=== PATIENT | female | born 1990 | race Caucasian/White ===

== ENCOUNTER 2020-02-17 12:14 | Inpatient (IN) ==
--- NOTE | 2020-02-17 12:46 | Emergency Department Note ---
Impression & Plan Mood disorder, Suicidal ideations ED Provider Note NAME: JUAN MANUEL SERNA AGE: 29 SEX: F : 1990 ARRIVES VIA: Walk-In INFORMANT: Patient ED PROVIDER(S): Marko Morrison DO CHIEF COMPLAINT: Suicidal ideations HPI: Patient is a transgender 29-year-old male who is transitioning from female who presents the ER for suicidal ideations. He notes that he has had these thoughts for several months but recently they have gotten worse after he broke up with his boyfriend. He has had multiple plans over the past 24 hours which include crashing his car and cutting his wrist. He denies any auditory hallucinations. No visual hallucinations. Denies any headache, change in vision, chest pain shortness of breath nausea vomiting or diarrhea. He has history of depression and anxiety. He notes his anxiety recently has been a little worse. No other exacerbating or remitting factors. ROS: See above HPI for pertinent positives & negatives. A total of 10 systems reviewed and were otherwise negative. PAST MEDICAL HISTORY:See Below PAST SURGICAL HISTORY:See Below FAMILY HISTORY:See Below SOCIAL HISTORY:See Below HOME MEDICATIONS:See Below ALLERGIES:See Below VITALS:See Below PHYSICAL EXAMINATION: GENERAL: Sitting up in bed, alert, well appearing, well nourished, no distress, non-toxic EYE EXAM: normal conjunctiva OROPHARYNX: no exudate, no erythema, lips, buccal mucosa, and tongue normal and mucous membranes are moist NECK: supple, no nuchal rigidity, no adenopathy, non-tender LUNGS: Clear to auscultation. Normal chest wall mechanics HEART: no murmurs, S1 normal and S2 normal ABDOMEN: abdomen soft, non-tender, normo-active bowel sounds, no masses, no rebound or guarding. BACK: Back is symmetrical on inspection and there is no deformity, no midline tenderness, no CVA tenderness. SKIN: no rashes and no bruising UPPER EXTREMITIES: upper extremities are grossly normal. LOWER EXTREMITIES: No pitting edema. NEURO EXAM: Normal sensorium, cranial nerves II-XII grossly intact, normal speech, no gross weakness of arms, no gross weakness of legs. PSYCH: Mitts to suicidal ideations with a plan MEDICAL DECISION MAKING: Patient is a 29-year-old female transitioning who presents the ER for suicidal ideations with multiple plans. Blood work is obtained and shows no significant leukocytosis or anemia. BMP with mild hyponatremia. LFTs bilirubin TSH was unremarkable. UA was negative. was negative. Salicylates and acetaminophen were negative. Alcohol was negative. Patient was willing to come in on 201 and was evaluated by 3 S. and admitted for further work-up. Triage Nursing notes reviewed. Prior medical records reviewed Vital Signs: reviewed and remarkable for tachycardic Differential diagnosis: Mood disorder, infection, hypoglycemia, electrolyte abnormalities, cardiac sources, intracerebral event, toxicologic, trauma, neurologic, as well as other pathologies. ER treatment provided: See below Diagnostics interpreted by me: ECG: none Laboratory studies: As stated above and show below. Imaging studies: None Consultation(s): none ED COURSE: Procedures: none Critical Care: None Past Med/Surg History Medical History History of ulcerative colitis Transgender Surgical History (Updated 07/24/19 @ 16:10 by Yue Nice) No significant past surgical history Family History (Updated 07/24/19 @ 16:12 by Yue Nice) Other Diabetes High cholesterol Social History Smoking Status: Never smoker Preferred Language: Danish Communication Ability: Effective [employer] Required: No Beliefs That Will Affect Care: None Feels Safe at Home: Yes Allergies Allergies Allergy/AdvReac Type Severity Reaction Status Date / Time methylphenidate Allergy Rash Verified 02/17/20 14:29 [From Ritalin] Home Meds Home Medications Medication Instructions Recorded Confirmed ibuprofen 600 mg PO Q6H PRN 12/29/18 02/17/20 testosterone cypionate 100 mg IM WK 12/29/18 02/17/20 venlafaxine [Effexor XR] 150 mg PO DAILY 12/29/18 02/17/20 omeprazole 20 mg PO DAILY 02/17/20 02/17/20 Results & Data (ED) Vital Signs Vital Signs - 24 hr 02/17/20 12:24 Temperature 36.9 C Temperature Source Oral Pulse Rate 105 H Respiratory Rate 18 Respiratory Effort / Characteristics Non-Labored Spontaneous Respiratory Depth Normal Respiratory Pattern Regular Blood Pressure 132/88 Blood Pressure Mean 102 Pulse Oximetry 99 Oxygen Delivery Method Room Air Sepsis Recent Fever Within 48 Hours No Sepsis New/Unexplained Change in Mental Status No Sepsis Action Taken by Nursing No Action Required Laboratory Data Result diagrams: 02/17/20 13:27 02/17/20 13:27 Lab Results 02/17/20 02/17/20 02/17/20 Range/Units 13:25 13:25 13:25 WBC (4.8-10.8) K/uL RBC (4.2-5.4) M/uL Hgb (12.0-16.0) g/dL Hct (37-47) % MCV (80-100) fL MCH (25-34) pg MCHC (32-36) g/dL RDW Std Deviation (36.4-46.3) fL RDW Coeff of Pedro (11.5-14.5) % Plt Count (130-400) K/uL MPV (7.4-10.4) fL Immature Gran % (Auto) % Neut % (Auto) % Lymph % (Auto) % [place] % (Auto) % Eos % (Auto) % Baso % (Auto) % Neut # (Auto) (1.4-6.5) K/uL Lymph # (Auto) (1.2-3.4) K/uL [place] # (Auto) (0.11-0.59) K/uL Eos # (Auto) (0-0.5) K/uL Baso # (Auto) (0-0.2) K/uL Immature Gran # (Auto) (0.00-0.02) K/uL Sodium (136-145) mmol/L Potassium (3.5-5.1) mmol/L Chloride (98-107) mmol/L Carbon Dioxide (21-32) mmol/L Anion Gap (3-11) BUN (7-18) mg/dl Creatinine (0.6-1.2) mg/dl Est Cr Clr Drug Dosing ml/min Est GFR ( Amer) Est GFR (Non-Af Amer) BUN/Creatinine Ratio (10-20) Glucose (70-99) mg/dl Calcium (8.5-10.1) mg/dl Total Bilirubin (0.2-1) mg/dl AST (15-37) U/L ALT (12-78) U/L Alkaline Phosphatase (45-117) U/L Total Protein (6.4-8.2) gm/dl Albumin (3.4-5.0) gm/dl Globulin (2.5-4.0) gm/dl Albumin/Globulin Ratio (0.9-2) TSH (0.300-4.500) uIu/ml Urine Color Yellow Urine Appearance Clear (Clear) Urine pH 8.0 H (4.5-7.5) Ur Specific [place] 1.010 (1.000-1.030) Urine Protein Negative (Negative) Urine Glucose (UA) Negative (Negative) Urine Ketones Negative (Negative) Urine Blood Negative (Negative) Urine Nitrite Negative (Negative) Urine Bilirubin Negative (Negative) Urine Urobilinogen Negative (Negative) Ur Leukocyte Esterase Trace H (Negative) Urine RBC 0-4 (0-4) /hpf Urine WBC 0-5 (0-5) /hpf Ur Epithelial Cells 0-5 (0-5) /lpf Urine Bacteria Negative (Negative) POC Ur Test NEG (NEG) Salicylates (2.8-20) mg/dl Urine Opiates Screen Neg (Neg) Ur Methadone, Qual Neg (Neg) Acetaminophen (10-30) ug/ml Urine Barbiturates Neg (Neg) Ur Phencyclidine (PCP) Neg (Neg) U Amphetamin/Meth Scrn Neg (Neg) MDMA (Ecstasy) Screen Neg (Neg) U Benzodiazepines Scrn Neg (Neg) Ur Cocaine Metabolite Neg (Neg) U Marijuana (THC) Screen Neg (Neg) Ethyl Alcohol mg/dL (0-3) mg/dl 02/17/20 02/17/20 02/17/20 Range/Units 13:27 13:27 13:27 WBC 7.31 (4.8-10.8) K/uL RBC 5.21 (4.2-5.4) M/uL Hgb 15.1 (12.0-16.0) g/dL Hct 45.4 (37-47) % MCV 87.1 (80-100) fL MCH 29.0 (25-34) pg MCHC 33.3 (32-36) g/dL RDW Std Deviation 43.4 (36.4-46.3) fL RDW Coeff of Pedro 13.6 (11.5-14.5) % Plt Count 317 (130-400) K/uL MPV 9.9 (7.4-10.4) fL Immature Gran % (Auto) 0.1 % Neut % (Auto) 76.1 % Lymph % (Auto) 17.2 % [place] % (Auto) 5.6 % Eos % (Auto) 0.7 % Baso % (Auto) 0.3 % Neut # (Auto) 5.56 (1.4-6.5) K/uL Lymph # (Auto) 1.26 (1.2-3.4) K/uL [place] # (Auto) 0.41 (0.11-0.59) K/uL Eos # (Auto) 0.05 (0-0.5) K/uL Baso # (Auto) 0.02 (0-0.2) K/uL Immature Gran # (Auto) 0.01 (0.00-0.02) K/uL Sodium 139 (136-145) mmol/L Potassium 3.4 L (3.5-5.1) mmol/L Chloride 106 (98-107) mmol/L Carbon Dioxide 27 (21-32) mmol/L Anion Gap 6.0 (3-11) BUN 15 (7-18) mg/dl Creatinine 0.98 (0.6-1.2) mg/dl Est Cr Clr Drug Dosing 77.1 ml/min Est GFR ( Amer) 91.0 Est GFR (Non-Af Amer) 78.5 BUN/Creatinine Ratio 15.7 (10-20) Glucose 83 (70-99) mg/dl Calcium 9.3 (8.5-10.1) mg/dl Total Bilirubin 0.5 (0.2-1) mg/dl AST 17 (15-37) U/L ALT 14 (12-78) U/L Alkaline Phosphatase 112 (45-117) U/L Total Protein 7.9 (6.4-8.2) gm/dl Albumin 4.1 (3.4-5.0) gm/dl Globulin 3.8 (2.5-4.0) gm/dl Albumin/Globulin Ratio 1.1 (0.9-2) TSH 1.140 (0.300-4.500) uIu/ml Urine Color Urine Appearance (Clear) Urine pH (4.5-7.5) Ur Specific [place] (1.000-1.030) Urine Protein (Negative) Urine Glucose (UA) (Negative) Urine Ketones (Negative) Urine Blood (Negative) Urine Nitrite (Negative) Urine Bilirubin (Negative) Urine Urobilinogen (Negative) Ur Leukocyte Esterase (Negative) Urine RBC (0-4) /hpf Urine WBC (0-5) /hpf Ur Epithelial Cells (0-5) /lpf Urine Bacteria (Negative) POC Ur Test (NEG) Salicylates < 1.7 L (2.8-20) mg/dl Urine Opiates Screen (Neg) Ur Methadone, Qual (Neg) Acetaminophen < 2 L (10-30) ug/ml Urine Barbiturates (Neg) Ur Phencyclidine (PCP) (Neg) U Amphetamin/Meth Scrn (Neg) MDMA (Ecstasy) Screen (Neg) U Benzodiazepines Scrn (Neg) Ur Cocaine Metabolite (Neg) U Marijuana (THC) Screen (Neg) Ethyl Alcohol mg/dL (0-3) mg/dl 02/17/20 Range/Units 13:27 WBC (4.8-10.8) K/uL RBC (4.2-5.4) M/uL Hgb (12.0-16.0) g/dL Hct (37-47) % MCV (80-100) fL MCH (25-34) pg MCHC (32-36) g/dL RDW Std Deviation (36.4-46.3) fL RDW Coeff of Pedro (11.5-14.5) % Plt Count (130-400) K/uL MPV (7.4-10.4) fL Immature Gran % (Auto) % Neut % (Auto) % Lymph % (Auto) % [place] % (Auto) % Eos % (Auto) % Baso % (Auto) % Neut # (Auto) (1.4-6.5) K/uL Lymph # (Auto) (1.2-3.4) K/uL [place] # (Auto) (0.11-0.59) K/uL Eos # (Auto) (0-0.5) K/uL Baso # (Auto) (0-0.2) K/uL Immature Gran # (Auto) (0.00-0.02) K/uL Sodium (136-145) mmol/L Potassium (3.5-5.1) mmol/L Chloride (98-107) mmol/L Carbon Dioxide (21-32) mmol/L Anion Gap (3-11) BUN (7-18) mg/dl Creatinine (0.6-1.2) mg/dl Est Cr Clr Drug Dosing ml/min Est GFR ( Amer) Est GFR (Non-Af Amer) BUN/Creatinine Ratio (10-20) Glucose (70-99) mg/dl Calcium (8.5-10.1) mg/dl Total Bilirubin (0.2-1) mg/dl AST (15-37) U/L ALT (12-78) U/L Alkaline Phosphatase (45-117) U/L Total Protein (6.4-8.2) gm/dl Albumin (3.4-5.0) gm/dl Globulin (2.5-4.0) gm/dl Albumin/Globulin Ratio (0.9-2) TSH (0.300-4.500) uIu/ml Urine Color Urine Appearance (Clear) Urine pH (4.5-7.5) Ur Specific [place] (1.000-1.030) Urine Protein (Negative) Urine Glucose (UA) (Negative) Urine Ketones (Negative) Urine Blood (Negative) Urine Nitrite (Negative) Urine Bilirubin (Negative) Urine Urobilinogen (Negative) Ur Leukocyte Esterase (Negative) Urine RBC (0-4) /hpf Urine WBC (0-5) /hpf Ur Epithelial Cells (0-5) /lpf Urine Bacteria (Negative) POC Ur Test (NEG) Salicylates (2.8-20) mg/dl Urine Opiates Screen (Neg) Ur Methadone, Qual (Neg) Acetaminophen (10-30) ug/ml Urine Barbiturates (Neg) Ur Phencyclidine (PCP) (Neg) U Amphetamin/Meth Scrn (Neg) MDMA (Ecstasy) Screen (Neg) U Benzodiazepines Scrn (Neg) Ur Cocaine Metabolite (Neg) U Marijuana (THC) Screen (Neg) Ethyl Alcohol mg/dL < 3.0 (0-3) mg/dl Discharge Plan Visit Data Chief Complaint: Mental Health Evaluation Stated Complaint: MENTAL HEALTH EVAL ED Provider: Marko Morrison Discharge Problem: Mood disorder, Suicidal ideations Patient Disposition: Admitted As Inpatient Discharge Instructions Interventions: ED Discharge Assessment Last Done: 02/17/20 18:29
[2020-02-17 13:42] LABS: Basophils # (auto) 0.02 K/uL (0-0.2); Basophils % (auto) 0.3 %; Eosinophils # (auto) 0.05 K/uL (0-0.5); Eosinophils % (auto) 0.7 %; Hematocrit (blood only) 45.4 % (37-47); Hemoglobin 15.1 g/dL (12.0-16.0); Immature Granulocytes # (auto) 0.01 K/uL (0.00-0.02); Immature Granulocytes % (auto) 0.1 %; Lymphocytes # (auto) 1.26 K/uL (1.2-3.4); Lymphocytes % (auto) 17.2 %; Mean Corpuscular Hgb Conc 33.3 g/dL (32-36); Mean Corpuscular Volume 87.1 fL (80-100); Mean Platelet Volume 9.9 fL (7.4-10.4); Monocytes # (auto) 0.41 K/uL (0.11-0.59); Monocytes % (auto) 5.6 %; Neutrophils # (auto) 5.56 K/uL (1.4-6.5); Neutrophils % (auto) 76.1 %; Platelet Count 317 K/uL (130-400); RDW Coefficient of Variation 13.6 % (11.5-14.5); RDW Standard Deviation 43.4 fL (36.4-46.3); Red Blood Count 5.21 M/uL (4.2-5.4); White Blood Count 7.31 K/uL (4.8-10.8)
[2020-02-17 13:42] LABS: Appearance Urine Clear (Clear); Bilirubin Urine Negative (Negative); Blood Urine Negative (Negative); Color Urine Yellow; Glucose Urine UA Negative (Negative); Ketones Urine Negative (Negative); Leukocyte Esterase Urine Trace (Negative); Nitrite Urine Negative (Negative); Protein Urine Negative (Negative); Urobilinogen Urine Negative (Negative)
[2020-02-17 13:59] LABS: Albumin Level 4.1 gm/dl (3.4-5.0); BUN Creatinine Ratio 15.7 (10-20); Calcium 9.3 mg/dl (8.5-10.1); Creatinine Clr Calc Pharmacy 77.1 ml/min; Est GFR (Non-African American) 78.5; Potassium 3.4 mmol/L (3.5-5.1)
[2020-02-17 14:02] LABS: Bacteria Urine Negative (Negative); Epithelial Cell Urine 0-5 /lpf (0-5); RBC Urine 0-4 /hpf (0-4); WBC Urine 0-5 /hpf (0-5)
[2020-02-17 14:09] LABS: Albumin Globulin Ratio 1.1 (0.9-2); Bilirubin,Total 0.5 mg/dl (0.2-1); Globulin 3.8 gm/dl (2.5-4.0); Thyroid Stimulating Hormone 1.14 uIu/ml (0.300-4.500); Total Protein 7.9 gm/dl (6.4-8.2)
[2020-02-17 14:11] LABS: Acetaminophen < 2 ug/ml (10-30); Salicylate < 1.7 mg/dl (2.8-20)
[2020-02-17 14:28] LABS: Amphetamines+Metham, Urine Neg (Neg); Barbiturates, Urine Neg (Neg); Benzodiazepine, Urine Neg (Neg); Cocaine, Urine Neg (Neg); MDMA (Ecstacy), Urine Neg (Neg); Methadone, Urine Neg (Neg); Opiate, Urine Neg (Neg); Phencyclidine, Urine Neg (Neg)
[2020-02-17] MEDS ORDERED: MAGNESIUM HYDROXIDE SUSP 30 ML UDC PO PRN (15:12)
[2020-02-17] MEDS ORDERED: BISMUTH SUBSALICYLATE PER ML OMNICELL CHARGE PO PRN (15:12)
[2020-02-17] MEDS ORDERED: ACETAMINOPHEN 325 MG TAB PO PRN (15:12)
[2020-02-17] MEDS ORDERED: ALUMINUM/MAGNESIUM SUSP 30 ML UDC PO PRN (15:12)
[2020-02-17] MEDS ORDERED: SODIUM CHLORIDE 0.65% NA SOLN 45 ML (OCEAN) PRN (15:12)
[2020-02-17] MEDS ORDERED: IBUPROFEN 600 MG TAB PO PRN (15:14)
[2020-02-18] MEDS ORDERED: VENLAFAXINE HCL XR 150 MG CAPXR PO SCH (09:00)
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
[2020-02-18] MEDS: PANTOprazole 40 MG TAB PO SCH (11:19)
[2020-02-19] MEDS: VENLAFAXINE HCL XR 75 MG CAPXR PO SCH (09:39)
[2020-02-19] MEDS: PANTOprazole 40 MG TAB PO SCH (09:39)
[2020-02-19] MEDS: ESCITALOPRAM OXALATE 10 MG TAB PO SCH (09:40)
--- NOTE | 2020-02-19 13:40 | Psychiatric Progress Note ---
Date of Service February 19, 2020 Impression / Recommendations Impression 29-year-old female to male transgendered individual being treated with venlafaxine XR by PCP for depression who presented with suicidal and homicidal ideation in the context of a break-up with his boyfriend, and was involuntarily committed to treatment after he refused to sign in as he was upset he could not bring electronic devices on the unit. He says he has diagnosed himself with dissociative identity disorder, and does not have any outpatient mental health services, having quit therapy after his therapist did not support gender reassignment surgery. He reports rapid improvement of mood with a hospit alization; borderline traits noted. Continuing home medications while attempting to clarify what he is prescribed, as does not know all the names of his medications. He would benefit from a family meeting with parents, but is currently declining. Inpatient treatment is medically necessary due to the severity of symptoms and risk for suicide if discharged. (1) Suicidal ideations: 02/17 - continue inpatient treatment on a 302 commitment. -Encourage group attendance and participation, work on healthy coping skills and discharge safety plan. Family meeting with parents is recommended to review safety plan/discharge plans, and ensure no additional safety concerns. Patient is resistant to meeting with parents as he feels they do not support his desire to live as a mail instead of a female 02/18 - Pt denying SI, attending group programming - Safety recommendations reviewed with parents, who express no present concern - Support meeting to be scheduled with a close friend prior to discharge (2) Mood disorder: 02/17 - Differential includes MDD, BPD, adjustment disorder - Patient does not feel venlafaxine has been helpful, and would like to switch to another medication. He reports only 1 previous SSRI trial, so discussed trying a second SSRI, namely escitalopram. Reviewed risks, benefits, and side e ffects, and he requested to switch, so will initiate a cross taper. He also states he was recently started on a "booster" medication to target mood and anxiety, but does not know the name -have asked staff to contact his PCPs office and get a current medication list. - Coordinate w/ PCP and [facility], where patient has intake scheduled 03/22/2020. Refer for outpatient therapy. 02/18 - Continue current medication regimen - will continue current phase of cross taper from venlafaxine to escitalopram at this time. Ongoing cross-taper will likely be continued by PCP on an outpatient basis - Support meeting scheduled for tomorrow with a friend - Kristy - Staff spoke with parents, with whom patient will live on discharge, who denied safety concerns or other concerns surrounding discharge - Referrals sent to [email or web address] for outpatient therapy; patient on cancellation list for [facility] for sooner psychiatric intake if available (3) Transgender: 02/17 - Medically necessary private room -Send records to PCP Dr. Tinsley, for coordination of care. 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 Chief Complaint "I'm feeling a lot better." Review of Systems Notes Constitutional: denied Cardiovascular: denied Respiratory: denied Gastrointestinal: denied Neurological: denied Psychiatric: denies symptoms other than stated above Total of at least 10 systems reviewed, pertinent positives as above and in HPI. Sleep Information Total Hours of Sleep: 5.75 Sleep Comments: pt on q-15 minute checks Meal Information Percent Meal Consumed - Breakfast: 100 Percent Meal Consumed - Lunch: 100 Percent Meal Consumed - Dinner: 100 Subjective Subjective [id number] transgender patient, who goes by "Wilson" - please note pronouns utilized in this document reflect preferred - "he, his, him". Patient was seen & assessed and interval progress reviewed with nursing and social work. Staff report the patient has been cooperative with group programming. He attended community meeting and rated his mood an 8/10 and "relaxed" last evening. Pt was seen today to assess progress since admission. Pt states "I'm feeling a lot better." He admits that initially he was resistant to treatment, but is "happier I came in." He feel that the socialization of the unit and ability to process his stressors has positively affected his mood. Pt denies SI today and reports hope that medication adjustments will be beneficial. Pt is agreeable with interim treatment by his PCP until he is able to be seen at [facility] for psychiatric medication management. Pt permitted a referral for outpatient therapy, and is hopeful to eventually be involved in some LGBT groups. Pt reports his goals for treatment are to continue to socialize with peers. He feels he would be ready for discharge as soon as tomorrow, but is aware of support meeting scheduled with a friend tomorrow afternoon. He denied other needs at this time. Physical Exam Psychiatric Orientation: alert, oriented x 3 and cooperative Apperance: appropriately dressed (casually, wearing t-shirt and gym pants), appropriately groomed and appeared stated age Wearing corrective lenses Eye Contact: good eye contact Motor Behavior: steady gait and station and no abnormal motor movements Speech: normal rate/rhythm/volume of speech Affect: + blunted affect (appearing somewhat subdued - brighter affect when talking about video games) Mood: no depressed mood ("a lot better") Thought Process: goal directed thought process, clear/coherent thought process and thought association intact Thought Content: reality based without delusions; no hopelessness and no worthlessness Suicidal Thoughts: denies suicidal thoughts Homicidal Thoughts: denies homicidal thoughts Hallucinations: no auditory hallucinations and no visual hallucinations Cognition: attention grossly intact and language grossly intact Estimated Intelligence: consistent with education level Insight: + fair insight Judgement: + fair judgement Vital Signs (Past 24 Hours) Last Vital Signs Temp 37 C 02/19/20 07:05 Pulse 85 02/19/20 07:05 Resp 18 02/19/20 07:05 BP 120/80 02/19/20 07:05 Pulse Ox 99 02/17/20 19:12 Results & Data (U) Current Inpatient Medications Current Inpatient Medications: Current Inpatient Medications Acetaminophen (Acetaminophen 325 Mg Tab) 650 mg PO Q4H PRN PRN Reason: Headache or Minor Fever Stop: 03/18/20 15:11 Al Hydrox/Mg Hydrox/Simethicone (Aluminum/Magnesium Susp 30 Ml Udc) 30 ml PO Q4H PRN PRN Reason: GI Upset Stop: 03/18/20 15:11 Bismuth Subsalicylate (Bismuth Subsalicylate Per Ml [facility]nicell Charge) 15 ml PO PRN PRN PRN Reason: Loose Stool Stop: 03/18/20 15:11 Buspirone HCl (Buspirone 5 Mg Tab) 10 mg PO BID DUSTIN Stop: 03/20/20 20:59 Escitalopram Oxalate (Escitalopram Oxalate 10 Mg Tab) 5 mg PO QAM DUSTIN Stop: 03/20/20 08:59 Last Admin: 02/19/20 09:40 Dose: 5 mg Documented by: Hydroxyzine HCl (Hydroxyzine Hcl 25 Mg Tab) 50 mg PO HSZ PRN PRN Reason: Insomnia Stop: 03/18/20 15:11 Hydroxyzine HCl (Hydroxyzine Hcl 25 Mg Tab) 25 mg PO Q4H PRN PRN Reason: Anxiety Stop: 03/18/20 15:11 Ibuprofen (Ibuprofen 600 Mg Tab) 600 mg PO Q6H PRN PRN Reason: Pain Stop: 03/18/20 15:13 Magnesium Hydroxide (Magnesium Hydroxide Susp 30 Ml Udc) 30 ml PO DAILY PRN PRN Reason: Constipation Stop: 03/18/20 15:11 Pantoprazole Sodium (Pantoprazole 40 Mg Tab) 40 mg PO DAILY DUSTIN Stop: 03/19/20 08:59 Last Admin: 02/19/20 09:39 Dose: 40 mg Documented by: Sodium Chloride (Sodium Chloride 0.65% Na Soln 45 Ml ([place])) 1 - 2 sprays NA PRN PRN PRN Reason: Nasal Dryness/Congestion Stop: 03/18/20 15:11 Venlafaxine HCl (Venlafaxine Hcl Xr 75 Mg Capxr) 75 mg PO DAILY DUSTIN Stop: 03/20/20 08:59 Last Admin: 02/19/20 09:39 Dose: 75 mg Documented by: Mental Health & Subst Abuse Tx Psychiatrist Name of Psychiatrist: Loren Cook Psychiatrist's Date of Appointment with Psychiatrist: 03/22/20 Time of Appointment with Psychiatrist: 1:30 p.m. (also placed on the cancellation list for a sooner appt) Psychiatric Appointment Comment: [id number] [facility], [place], [place] Therapist Name of Therapist: [facility] Therapy Appointment Comment: Zoom appointments Post Discharge Appointments Primary Care Physician Name Of Family Doctor: Dr. Belinda Shin [facility] Date of Appointment with PCP: 02/25/20 Time of Appointment with PCP: 12:45pm Provider Appointment Comment: [address] [place] [id number] Contact Information Discharge Discharge Address: [address] [place] [id number]
[2020-02-20] MEDS: VENLAFAXINE HCL XR 75 MG CAPXR PO SCH (10:12)
[2020-02-20] MEDS: ESCITALOPRAM OXALATE 10 MG TAB PO SCH (10:12)
[2020-02-20] MEDS: PANTOprazole 40 MG TAB PO SCH (10:12)
--- NOTE | 2020-02-20 11:12 | Discharge Summary ---
Date of Service February 20, 2020 History of Present Illness Patient presented to the ER yesterday, 02/17/2020, with a friend reporting worsening mood and suicidal thoughts in the context of a break-up with his boyfriend. He said his boyfriend ended the relationship because he does not believe the patient has alternate personalities and has "grown tired of his lies." He endorsed multiple plans including crashing his car, hanging himself, and cutting his wrists. He reported compliance with Effexor XR prescribed by his PCP, and an upcoming psychiatric evaluation at [facility] on 03/22/2020. He reported a history of major depression and anxiety, and said he had diagnosed himself with dissociative identity disorder and PTSD. He reported homicidal ideation towards people who have hurt him in the past, stating he would "eat them." He said he had other personalities including "protector, sharp, Raptor, T-israel, and dragon." He reported multiple stressors including the break-up, strained relationships with family, financial problems, job stress, and a history of trauma. He endorsed hopelessness, helplessness, poor functioning, a motivation, anhedonia, poor concentration, decreased appetite, and poor sleep. He reported severe anxiety on most days with shortness of breath, sweating, trembling, and poor concentration. He reported a history of self-harm by scratching himself with his nails. He initially agreed to recommendations for voluntary admission, but then refused admission when advised he would not be able to bring electronic devices on the unit, and was placed on a 302 involuntary commitment. Petitioning statement completed by ER watch caser: "Patient admits to worsening depression and anxiety, causing suicidal ideation with thoughts to crash car, slice arm, and hang self. Patient has a history of MDD and severe anxiety. Patient prescribed Effexor and has an appointment with [facility] with psychologist. Patient reports decrease sleep and appetite. It is this petitioner's belief patient is in need of psychiatric treatment.)" Admission labs: CBC, CMP, TSH normal. UDS and test negative. UA elevated pH 8.0 and trace leukocyte esterase. On my assessment today, the patient reports he was diagnosed with depression and anxiety 3 to 4 years ago while living in [place], stating symptoms started when "I started becoming myself, becoming trans," and his was not excepting of this. He has been treated by his PCP with sertraline and then venlafaxine. He states that "a booster medication" was recently added, but does not know the name or what type of medication it is. He says his current medications "aren't doing anything for me," so his PCP referred him to [facility]. He says he is going to awaits this to "get diagnosed with several things, I'm gonna get diagnosed with DID, PTSD, autism spectrum, bipolar, and I'm gonna get rediagnosed with depression and anxiety." He reports mood and anxiety symptoms have been worsening for 5 to 6 months, since the start of the pandemic, as he was unable to see his boyfriend, and then worsened acutely a couple of days ago after his boyfriend broke up with him unexpectedly. Additional stressors are that "I'm not getting the support I need, because I'm trans," stating his parents and coworkers do not support him. He states he has lost many friends due to lying and "because of the way I was acting." He came to the emergency room because "I felt unstable and couldn't take it anymore, had zero hope because I lost so many friends, and no support at home or work." Suicidal thoughts started a few days ago in the context of friends and boyfriend getting upset with the patient due to lying. He reported negative thoughts such as "nobody cares about you, nobody loves you." He says 1 of his personalities is "getting me through this, my protector." He endorses "night terrors" which he describes as nightmares about his ex- "and my father, because I'm not getting any support at home." He denies any history of manic episodes or psychotic symptoms, but believes he has bipolar disorder "because my friends told me I was acting bipolar." He reports feeling "very emotional" with irritability and anger outbursts, which have worsened noticeably since starting testosterone, and triggered by interpersonal difficulties. He reports "constant anxiety and panic attacks," and endorses episodes of shortness of breath, sweating, and trembling, but not full panic attack symptoms. Physical Exam Psychiatric Orientation: alert, oriented x 3 and cooperative Apperance: appropriately dressed, appropriately groomed and appeared stated age Eye Contact: + fair eye contact Motor Behavior: steady gait and station Speech: normal rate/rhythm/volume of speech Affect: euthymic affect "I'd did say it's pretty good." Thought Process: goal directed thought process Thought Content: reality based without delusions Suicidal Thoughts: denies suicidal thoughts Homicidal Thoughts: denies homicidal thoughts Hallucinations: no auditory hallucinations and no visual hallucinations Cognition: recent memory grossly intact, remote memory grossly intact, attention grossly intact and language grossly intact Estimated Intelligence: average estimated intelligence Insight: + fair insight Judgement: good judgement Vital Signs (Past 24 Hours) Last Vital Signs Temp 36.5 C 02/20/20 06:48 Pulse 86 02/20/20 06:49 Resp 16 02/20/20 06:48 BP 119/77 02/20/20 06:49 Pulse Ox 99 02/17/20 19:12 Principal Diagnosis Depression, NOS Psychiatric Data During the course of hospitalization the patient was offered various modalities of psychiatric treatment and education. These included individual, and recreational therapies. Several adjustments were made in the patient's medication regimen. He had told us at admission that he did not feel that venlafaxine was still beneficial, or at least he did not feel that it was fully beneficial. There were discussions regarding adjunctive medications such as aripiprazole, bupropion, or risperidone. The patient indicated that he felt he would like to try a different antidepressant medication, and the process of a cross titration from venlafaxine 150 mg a day to venlafaxine 75 mg a day with Lexapro 5 mg a day was begun. The patient reported that he felt somewhat better at the lower dose of venlafaxine and thought that perhaps the Lexapro was serving as a "booster" for the venlafaxine. He consistently denied any suicidal ideation following admission, and clarified that he had never had any actual suicidal plan or intent. He notes, instead, that he was concerned because he was having suicidal thoughts and, also, he wanted help in finding a new therapist and an outpatient psychiatrist. The patient's affect brightened. He was quite active in group therapy and focused on improving his individual coping strategies. At the time of his discharge assessment we discussed the option of continuing the cross titration of venlafaxine to Lexapro pending his upcoming outpatient psychiatric appointment which will not be until the middle of Octob er. The patient said that currently he is feeling like, for the time being, he is doing well at venlafaxine 75 mg a day and Lexapro 5 mg a day and would feel more comfortable "just staying with that" until he is established with his outpatient psychiatrist. He also notes that his primary care physician may feel comfortable making medication adjustments on an outpatient basis until he has established himself with a psychiatrist, and it was agreed that the patient would consider contacting his outpatient psychiatrist should he feel that further adjustments in his medications may be necessary pending the outpatient appointment with a psychiatrist at [facility]. The patient tells us that he is convinced that he has dissociative identity disorder. We did not find evidence in support of this, and in any event this was not a focus of treatment during hospitalization. Instead, it appears that the patient may have certain character traits that cause him to feel "split off" at times. The case was reviewed by the treatment team this morning, and it was agreed that the patient had received maximum benefit from inpatient hospitalization and that he is now sufficiently stable psychiatrically and sufficiently competent mentally to safely and effectively continue treatment on an outpatient basis. Day of Discharge Assessment On the day of discharge, the patient was found to be pleasant, cooperative, and appropriately dressed and groomed. He was carrying a stuffed doll. The patient's eye contact was fair. His speech was spontaneous and delivered at a normal rate and rhythm and volume. The patient's thought processes demonstrated tight associations. His thought content was devoid of any psychotic features, and he notes that he is not experiencing any perceptual disturbances. He reported that he was not having any suicidal thoughts, has had no suicidal thoughts since admission, and emphasizes that prior to the current admission he was not experiencing any suicidal plan or intent. Instead, he said that he was concerned because he was having the thoughts and, also, he was hoping that coming to the hospital would help expedite his plan to find a new psychotherapist and a outpatient psychiatrist. He also indicated that he had FMLA paperwork that he wanted completed because he has had "too many call outs" at work and is in jeopardy for having his employment terminated. He is future oriented, talks at some length about his long-term plans, indicates that a primary concern for him is to be able to keep his current job, and he is developed a reasonable plan for safe community reentry, as described above. Patient also reports that he has no homicidal thoughts. His insight at this point is fair. His judgment is described as good. His intelligence is at least average. Transition of Care Transition Of Care Record: was reviewed with the patient Advance Directives Advance Directives Information Provided: Yes Advance Directives: No Mental Health Advance Directive: No Advance Directives on File: No Living Will: No Power of Berry Picker Machine Operator: No Advance Directives Reason:: Declines as Mental Health Visit. Risk Factors Assessment Limited support network. History of depression. History of suicidal thoughts. Mitigating factors include motivation to treatment and recovery. 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) Stable Relationships: No Supportive Family: Yes Good Rapport with Provider: No Absence of Any Risk Factors Above: No Tobacco Cessation at Discharge Tobacco Cessation Medication Prescribed at Discharge: Not Applicable/Non-Smoker Total Time Total Time Spent: Greater Than 30 Minutes Total Time Includes: Examination of the patient, Discharge Planning, Medication Reconciliation and Communication with other providers Discharge Data Lab Results 02/17/20 02/17/20 02/17/20 13:25 13:25 13:25 WBC RBC Hgb Hct MCV MCH MCHC RDW Std Deviation RDW Coeff of Pedro Plt Count MPV Immature Gran % (Auto) Neut % (Auto) Lymph % (Auto) [place] % (Auto) Eos % (Auto) Baso % (Auto) Neut # (Auto) Lymph # (Auto) [place] # (Auto) Eos # (Auto) Baso # (Auto) Immature Gran # (Auto) Sodium Potassium Chloride Carbon Dioxide Anion Gap BUN Creatinine Est Cr Clr Drug Dosing Est GFR ( Amer) Est GFR (Non-Af Amer) BUN/Creatinine Ratio Glucose Calcium Total Bilirubin AST ALT Alkaline Phosphatase Total Protein Albumin Globulin Albumin/Globulin Ratio TSH Urine Color Yellow Urine Appearance Clear Urine pH 8.0 H Ur Specific [place] 1.010 Urine Protein Negative Urine Glucose (UA) Negative Urine Ketones Negative Urine Blood Negative Urine Nitrite Negative Urine Bilirubin Negative Urine Urobilinogen Negative Ur Leukocyte Esterase Trace H Urine RBC 0-4 Urine WBC 0-5 Ur Epithelial Cells 0-5 Urine Bacteria Negative POC Ur Test NEG Salicylates Urine Opiates Screen Neg Ur Methadone, Qual Neg Acetaminophen Urine Barbiturates Neg Ur Phencyclidine (PCP) Neg U Amphetamin/Meth Scrn Neg MDMA (Ecstasy) Screen Neg U Benzodiazepines Scrn Neg Ur Cocaine Metabolite Neg U Marijuana (THC) Screen Neg Ethyl Alcohol mg/dL 02/17/20 02/17/20 02/17/20 13:27 13:27 13:27 WBC 7.31 RBC 5.21 Hgb 15.1 Hct 45.4 MCV 87.1 MCH 29.0 MCHC 33.3 RDW Std Deviation 43.4 RDW Coeff of Pedro 13.6 Plt Count 317 MPV 9.9 Immature Gran % (Auto) 0.1 Neut % (Auto) 76.1 Lymph % (Auto) 17.2 Ripley % (Auto) 5.6 Eos % (Auto) 0.7 Baso % (Auto) 0.3 Neut # (Auto) 5.56 Lymph # (Auto) 1.26 Ripley # (Auto) 0.41 Eos # (Auto) 0.05 Baso # (Auto) 0.02 Immature Gran # (Auto) 0.01 Sodium 139 Potassium 3.4 L Chloride 106 Carbon Dioxide 27 Anion Gap 6.0 BUN 15 Creatinine 0.98 Est Cr Clr Drug Dosing 77.1 Est GFR ( Amer) 91.0 Est GFR (Non-Af Amer) 78.5 BUN/Creatinine Ratio 15.7 Glucose 83 Calcium 9.3 Total Bilirubin 0.5 AST 17 ALT 14 Alkaline Phosphatase 112 Total Protein 7.9 Albumin 4.1 Globulin 3.8 Albumin/Globulin Ratio 1.1 TSH 1.140 Urine Color Urine Appearance Urine pH Ur Specific [place] Urine Protein Urine Glucose (UA) Urine Ketones Urine Blood Urine Nitrite Urine Bilirubin Urine Urobilinogen Ur Leukocyte Esterase Urine RBC Urine WBC Ur Epithelial Cells Urine Bacteria POC Ur Test Salicylates < 1.7 L Urine Opiates Screen Ur Methadone, Qual Acetaminophen < 2 L Urine Barbiturates Ur Phencyclidine (PCP) U Amphetamin/Meth Scrn MDMA (Ecstasy) Screen U Benzodiazepines Scrn Ur Cocaine Metabolite U Marijuana (THC) Screen Ethyl Alcohol mg/dL 02/17/20 13:27 WBC RBC Hgb Hct MCV MCH MCHC RDW Std Deviation RDW Coeff of Pedro Plt Count MPV Immature Gran % (Auto) Neut % (Auto) Lymph % (Auto) [place] % (Auto) Eos % (Auto) Baso % (Auto) Neut # (Auto) Lymph # (Auto) [place] # (Auto) Eos # (Auto) Baso # (Auto) Immature Gran # (Auto) Sodium Potassium Chloride Carbon Dioxide Anion Gap BUN Creatinine Est Cr Clr Drug Dosing Est GFR ( Amer) Est GFR (Non-Af Amer) BUN/Creatinine Ratio Glucose Calcium Total Bilirubin AST ALT Alkaline Phosphatase Total Protein Albumin Globulin Albumin/Globulin Ratio TSH Urine Color Urine Appearance Urine pH Ur Specific [place] Urine Protein Urine Glucose (UA) Urine Ketones Urine Blood Urine Nitrite Urine Bilirubin Urine Urobilinogen Ur Leukocyte Esterase Urine RBC Urine WBC Ur Epithelial Cells Urine Bacteria POC Ur Test Salicylates Urine Opiates Screen Ur Methadone, Qual Acetaminophen Urine Barbiturates Ur Phencyclidine (PCP) U Amphetamin/Meth Scrn MDMA (Ecstasy) Screen U Benzodiazepines Scrn Ur Cocaine Metabolite U Marijuana (THC) Screen Ethyl Alcohol mg/dL < 3.0 Hospital Course (1) Suicidal ideations: 02/17 - continue inpatient treatment on a 302 commitment. -Encourage group attendance and participation, work on healthy coping skills and discharge safety plan. Family meeting with parents is recommended to review safety plan/discharge plans, and ensure no additional safety concerns. Patient is resistant to meeting with parents as he feels they do not support his desire to live as a mail instead of a female 02/18 - Pt denying SI, attending group programming - Safety recommendations reviewed with parents, who express no present concern - Support meeting to be scheduled with a close friend prior to discharge 02/19 -The patient continues to report that he is not experiencing any suicidal thoughts. He also is able to describe a safety plan for community reentry that includes contacting his best friend, Kristy, who he says has always been available for prompt support. If for some reason he is not able to contact Michael, he lives with his parents and would ask for their help. He also says that he has had a good experience at [facility] and would seek help here if unable to speak with his parents or with Kristy. -Patient notes that he feels that the addition of Lexapro, combined with the reduced dose of venlafaxine has been helpful and that he feels more alert and connected. I explained that we were in the process of cross titration, and ex plained what that means. Essentially, he understands that the plan will be to eventually taper and discontinue venlafaxine while titrating Lexapro. Unfortunately, his first outpatient psychiatric visit is scheduled for the middle of next month, and we consider the option of continuing the cross taper on an outpatient basis before he sees the psychiatrist, or continuing at the current dosages of each medicine (venlafaxine 75 mg daily and Lexapro 5 mg daily) and the patient said that he would feel most comfortable staying at the current dosage of each medication because he feels that he is doing well with the current medication regimen and he would be concerned that ongoing adjustments in his medication independent of the ability to be directly monitored on an outpatient basis might not have the desired outcome. Alternatively, he may approach his primary care physician in order to continue the cross titration if symptomatic relief does not continue at the current level. -Patient notes that he feels fully ready for discharge and is eager to return to the community. (2) Mood disorder: 02/17 - Differential includes MDD, BPD, adjustment disorder - Patient does not feel venlafaxine has been helpful, and would like to switch to another medication. He reports only 1 previous SSRI trial, so discussed trying a second SSRI, namely escitalopram. Reviewed risks, benefits, and side effects, and he requested to switch, so will initiate a cross taper. He also states he was recently started on a "booster" medication to target mood and anxiety, but does not know the name -have asked staff to contact his PCPs office and get a current medication list. - Coordinate w/ PCP and [facility], where patient has intake scheduled 03/22/2020. Refer for outpatient therapy. 02/18 - Continue current medication regimen - will continue current phase of cross taper from venlafaxine to escitalopram at this time. Ongoing cross-taper will likely be continued by PCP on an outpatient basis - Support meeting scheduled for tomorrow with a friend - Kristy - Staff spoke with parents, with whom patient will live on discharge, who denied safety concerns or other concerns surrounding discharge - Referrals sent to [facility] for outpatient therapy; patient on cancellation list for [facility] for sooner psychiatric intake if available 02/19 -Today, the patient says that his mood is "8 or 9 out of 10." He tells me that he has learned more about himself through group therapy and activity therapy here in the hospital. He also feels that the medication changes have been helpful. (3) Transgender: 02/17 - Medically necessary private room -Send records to PCP Dr. Tinsley, for coordination of care. 02/18 - Pt reports taking his weekly testosterone injection on Sunday - if not discharged tomorrow, we will need to provide his home medication for administration 02/19 -The patient tells us that his long-term goal, when financially able, is to move to a more progressive part of the state, such as [place]. ([place] He notes that there is generally little support for the LGBT community in the [facility], and he often feels that he would like a better support network, and the community that may be more understanding and accepting. Mental Health & Subst Abuse Tx Psychiatrist Name of Psychiatrist: [facility]'s Date of Appointment with Psychiatrist: 03/22/20 Time of Appointment with Psychiatrist: 1:30 p.m. (also placed on the cancellation list for a sooner appt) Psychiatric Appointment Comment: [address] [place], [place] Therapist Name of Therapist: [employer] Therapist's Therapy Appointment Comment: Zoom appointments Post Discharge Appointments Primary Care Phys[facility] Date of Appointment with PCP: 02/25/20 Time of Appointment with PCP: 12:45pm Provider Appointment Comment: [address] [place] [id number] Smoking Cessation Counseling Tobacco Cessation Medication Prescribed at Discharge: Not Applicable/Non-Smoker Contact Information Discharge Discharge Address: [address] [place] [id number] Discharge Plan Discharge Items Patient Disposition: Home - Self-Care Reason For Visit: DEPRESSION, NOS Discharge Diagnosis: Depression, NOS Activity: Resume your previous activity Non-emergency contact: Primary Care Provider, Psychiatrist and Therapist Call non-emergency contact if: you have any medication questions and your symptoms worsen Follow-up/Referrals: Belinda Castillo MD [Primary Care Provider] - Diet: Regular Addtl Attending Provider Instructions: SPECIAL CARE INSTRUCTIONS: 1. Follow through with your scheduled aftercare appointments. If unable to keep an appointment, please call to reschedule. 2. Take your medication only as prescribed. Medication should not be changed or stopped without the approval of your doctor. In the event of worsening symptoms or concerns about side effects, contact your doctor immediately. 3. Utilize new healthy coping skills, anger management skills, and stress management skills learned during your hospitalization. Journal feelings and process them with a support person. Identify stressors or situations that may result in relapse, deterioration or inappropriate behaviors and develop a plan to deal with those issues. 4. If your coping skills are ineffective and you are in crisis, contact your outpatient providers for direction. If unable to reach your providers, please call the [facility] CRISIS LINE AT , go to the [facility] walk-in center at [address] [place] [address] A, [place], or go to the closest Emergency Room. 5. Avoid alcohol and un-prescribed drugs. 6. You have been provided with the Mental Health Advance Directives Pamphlet for your review. AFTERCARE APPOINTMENTS: * Please call your insurance company prior to your scheduled appointment to confirm your aftercare providers are covered. Take your insurance information to your appointments. WHO TO CALL AND WHEN: Medical Emergencies: For questions or emergencies related to your hospital stay, please contact the Inpatient Behavioral Health Unit at [phone]. A hearing aide technician is on-call 25/12 for the Behavioral Health Unit for emergencies At any time you feel your situation is an emergency, you may also call 911 immediately. Pending Studies at Discharge: No Stand-Alone Forms: My [facility] ZoomSafer, Smoking Cessation, Suicide Prevention Resources Medications and DC Order Prescriptions: New buspirone 5 mg Tablet 10 mg PO BID Qty: 60 RF: 1 venlafaxine 75 mg Capsule,Extended Release 24hr 75 mg PO DAILY Qty: 30 RF: 1 escitalopram oxalate 10 mg Tablet 5 mg PO QAM Qty: 30 RF: 1 Continued omeprazole 20 mg capsule,delayed release(DR/EC) 20 mg PO DAILY RF: 0 ibuprofen 200 mg Tablet 600 mg PO Q6H PRN (Reason: Pain) RF: 0 testosterone cypionate 200 mg/mL Kit 100 mg IM WK RF: 0 Discontinued buspirone 10 mg tablet 10 mg PO BID RF: 0 venlafaxine [Effexor XR] 150 mg Capsule,Extended Release 24hr 150 mg PO DAILY RF: 0 Discharge Orders: Discharge Order (Routine); Ordered 02/20/20 Ordered By: Keny Collazo Admission Data Admit Date/Time: 02/17/20 15:13 Attending Provider: Enedelia Ramey Admit Provider: Enedelia Ramey Primary Care Provider: Belinda Castillo Other Interventions: PSY Interdisciplinary Discharge Planning Last Done: 02/19/20 17:30 C[place] [address] D/C day mgmt > 30 min Patient Type Established History Expanded Problem Focused Exam Expanded Problem Focused Medical Decision Making Moderate Complexity Diagnoses Suicidal ideations R45.851 Mood disorder F39 Transgender F64.0 Time Spent (min) 75
[2020-02-20] MEDS ORDERED: DESTROY THIS MEDICATION ONE (11:19)
== END 2020-02-20 13:30 | disposition home or self-care (01) | DRG 881 ==
LOC: ED 12:14 → 3S 15:13